=== PATIENT | male | born 1965 | race African-American/Black ===

== ENCOUNTER 2023-11-28 16:28 | Inpatient (IN) | payer OTHER, SELFPAY ==
[2023-11-28] VITALS (11 sets, daily range): BP systolic 92–104; BP diastolic 51–70; PULSE 91–110; RESP 16–31; TEMP 36.6–36.8; O2SAT 93–100; BMI 24.7
--- NOTE | ~2023-11-28 | XR_ITS ---
EXAMINATION: XR chest 1V portable DATE: 11/28/2023 18:06 INDICATION: Chest pain. TECHNIQUE: A single frontal view of the chest was obtained on 2 radiographs. COMPARISON: None. FINDINGS: There is mild elevation of right hemidiaphragm. There are airspace opacities in all right l jaleel zones with a perihilar predominance. No pleural effusion or pneumothorax. The heart size is myrna l. There are old healed bilateral rib fractures. IMPRESSION: 1. Airspace opacities in right lung, consistent with atelectasis/scarring versus pneumonia. Reviewed, dictated and finalized at location A. IMPRESSION: 1. Airspace opacities in right lung, consistent with atelectasis/scarring versu s pneumonia.
--- NOTE | ~2023-11-28 | CT_ITS ---
EXAMINATION: CT abdomen pelvis w con DATE: 12/02/2023 14:44 INDICATION: Abdominal pain TECHNIQUE: Computed tomography (CT) of the abdomen and pelvis was performed with 100 CC Omnipaque 350 intravenous contrast. Automated exposure control and iterative reconstruction technique were employe d. Exam dose: 337.64 mGy-cm total exam DLP. COMPARISON: None. FINDINGS: There is extensive right lower lobe infiltrate with air bronchograms. Small right pleural e ffusion. The remaining included lower lung ohara are clear. No left pleural effusion. Normal heart size. Coronary artery calcification. No pericardial effusion. Small sliding hiatal hernia. Thickening of the wall of distal esophagus which may be secondary to eso phagitis. The liver, spleen, pancreas are unremarkable. Status post cholecystectomy. No bile duct or pancreatic duct dilatation. Normal morphology of the adrenal glands. 12.7 mm left renal cyst Multiple right renal cysts are noted, the largest 1.4 cm. No urinary tract calculus or hydroureteronephrosis. There is prominent diffuse thickening of the urinary bladder moderate prostate enlargement. Normal caliber and slight calcification of the abdominal aorta. No intraperitoneal or retroperitoneal or pelvic mass lesion or adenopathy or ascites is noted. Normal appendix. No bowel obstruction or intraperitoneal free air. Old healed left rib fractures. Prominent degenerative spurring of the thoracic and lumbar spine, including very prominent bridging o steophytes in the lumbar and lumbosacral area. No suspicious osteolytic or osteoblastic lesions are noted. IMPRESSION: Right lower lobe pneumonia and slight right pleural effusion Small sliding hiatal hernia, distal esophageal wall thickening suggesting esophagitis Status post cholecystectomy Bilateral renal cysts Prominent thickening urinary bladder wall, likely due to prostatomegaly; recommend clinical correlati on to exclude cystitis. Normal appendix Reviewed, dictated and finalized at Location [facility]. Reviewed, dictated and finalized at location A. IMPRESSION: Right lower lobe pneumonia and slight right pleural effusion Small sliding hiatal hernia, distal esophageal wall thickening suggesting esoph agitis Status post cholecystectomy Bilateral renal cysts Prominent thickening urinary bladder wall, likely due to prostatomegaly; recomm end clinical correlation to exclude cystitis. Normal appendix
--- NOTE | ~2023-11-28 | CT_ITS ---
EXAMINATION: CTA chest PE protocol DATE: 11/28/2023 19:13 INDICATION: Hypoxia. TECHNIQUE: Computed tomography angiography (CTA) of the chest was performed with 100 mL Omnipaque-350 intravenous contrast timed to evaluate the pulmonary arteries. Coronal maximum intensity projection 3D-reconstructions were created by the technologist. Automated exposure control and iterative reconst ruction technique were employed. The dose-length product was 284.38 mGy-cm. COMPARISON: Chest single view 11/28/2023 FINDINGS: There are airspace and groundglass opacities with air bronchograms in right lower lobe, con sistent with pneumonia. No pleural effusion. The heart size is normal. There are coronary artery calc ifications. No pericardial effusion. There is no pulmonary embolus. There are changes of cholecystect belinda. There is wall thickening of the esophagus. There is mild thoracic spondylosis. There are old hea led bilateral rib fractures. IMPRESSION: 1. No pulmonary embolus. 2. Right lower lobe pneumonia. 3. Wall thickening of the esophagus, consistent with esophagitis. Reviewed, dictated and finalized at location A.
--- NOTE | ~2023-11-28 | XR_ITS ---
EXAMINATION: XR abdomen/kub 1V DATE: 12/02/2023 10:26 INDICATION: Abdominal pain. TECHNIQUE: A supine view of the abdomen was obtained. COMPARISON: None. FINDINGS: There are no dilated loops of bowel. There is a small volume of stool in the colon. IMPRESSION: 1. Normal bowel gas pattern. Reviewed, dictated and finalized at location A.
--- NOTE | 2023-11-28 16:34 | ECG_ITS ---
Test Date: 2023-11-28 16:40:51 Measurements Intervals [place] Rate: 111 P: 53 MI: 132 QRS: 31 QRSD: 92 T: 63 QT: 308 QTc: 420 Interpretive Statements SINUS TACHYCARDIA NONSPECIFIC T-WAVE ABNORMALITY- DIFFUSE LEADS BASELINE ARTIFACT- I, III, AVR, AVL ABNORMAL ECG No previous ECG available for comparison Electronically Signed On 11-28-2023 19:24:33 CDT by Jesus Kenyon D.O.
[2023-11-28 16:52] LABS: Hematocrit 39.1 % (42.0-52.0); Hemoglobin 13.8 g/dL (14.0-18.0); Mean Corpuscular HGB Conc 35.3 g/dl (32-36); Mean Corpuscular Hemoglobin 32.6 pg (26-34); Mean Corpuscular Volume 92.4 fl (80-100); Mean Platelet Volume 9.4 fl (7.4-10.4); Platelet Count Result 147 k/mm3 (150-375); Red Blood Count 4.23 M/mm3 (4.6-6.20); Red Cell Distribution Width 12.3 % (11.5-14.5); White Blood Count 3.3 K/mm3 (4.5-10.0)
[2023-11-28 17:01] LABS: INR 1.5
[2023-11-28 17:02] LABS: Partial Thromboplastin Time 32.1 Seconds (22.3-36.8)
[2023-11-28 17:04] LABS: Band Neutrophils Percent 8 % (0-6); Lymphocytes Absolute Manual 0.26 K/mm3 (1.1-4.5); Lymphocytes Percent Manual 8 % (18-44); Metamyelocytes Percent 2 %; Monocytes Absolute Manual 0.13 K/mm3 (0.1-0.90); Monocytes Percent Manual 4 % (3-9); Neutrophils Absolute Manual 2.83 K/mm3 (1.3-6.7); Neutrophils Percent Manual 78 % (46-73); Platelet Estimate Adequate (Adequate); Total Cells Counted 100
[2023-11-28 17:05] LABS: Ovalocytes 1+; Schistocytes None Seen
[2023-11-28 17:12] LABS: Alanine Aminotransferase 35 U/L (6-50); Albumin Level 3.2 g/dL (3.5-5.1); Alkaline Phosphatase 59 U/L (38-126); Anion Gap 14 mmol/L (4-12); Aspartate Amino Transferase 80 U/L (17-59); Bilirubin,Total 1.7 mg/dL (0.2-1.3); Blood Urea Nitrogen 18 mg/dL (9-20); Calcium 7.6 mg/dL (8.4-10.2); Carbon Dioxide 23 mmol/L (22-30); Chloride 93 mmol/L (98-107); Estimated CRCL calculation 64 ml/min; Estimated Glomerular Filt Rate > 60; Glucose 85 mg/dL (65-110); Lipase 26 U/L (23-300); Potassium 3.6 mmol/L (3.4-5.0); Sodium 130 mmol/L (137-145)
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
[2023-11-28] MEDS: IPRATROPIUM 0.5 MG/ALBUTEROL SULFATE 2.5 MG AMPUL.NEB 3 ML INHALATION (17:20)
[2023-11-28 17:23] LABS: Troponin I < 0.012 ng/mL (0.000-0.034)
[2023-11-28] MEDS: ONDANSETRON INJ 4 MG/2 ML VIAL IV PUSH (17:40)
[2023-11-28 18:03] LABS: Influenza A QL RT-PCR Negative (Negative); Influenza B QL RT-PCR Negative (Negative); RSV RNA, RT-PCR Negative (Negative); SARS-CoV-2 RNA PCR Positive (Negative)
[2023-11-28 18:16] LABS: D Dimer 1.84 ug/mL (<0.48)
--- NOTE | 2023-11-28 19:26 | ECG_ITS ---
Test Date: 2023-11-28 19:40:31 Measurements Intervals [place] Rate: 97 P: 71 TN: 160 QRS: 36 QRSD: 92 T: 54 QT: 345 QTc: 439 Interpretive Statements SINUS RHYTHM CONSIDER HIGH LATERAL INFARCT, AGE INDETERMINATE ABNORMAL ECG Compared to ECG 11/28/2023 16:40:51 HEART RATE HAS DECREASED Electronically Signed On 11-29-2023 06:38:28 CDT by Jesus Kenyon D.O.
[2023-11-28 20:13] LABS: Troponin I < 0.012 ng/mL (0.000-0.034)
[2023-11-28] MEDS: dexAMETHasone SOD PHOS INJ 10 MG/ML 1 ML VIAL IV PUSH (20:48)
[2023-11-28] MEDS: SODIUM CHLORIDE 0.9% IV 2,500 ML 999 ML IV CONT (20:49)
[2023-11-28] MEDS: AZITHROMYCIN 500 MG/NS 250 ML 500 MG/250 ML BAG 250 MG IVPB (21:05)
[2023-11-28 21:47] LABS: Procalcitonin 6.1 ng/mL
--- NOTE | 2023-11-28 22:11 | ADMGEN ---
This patient, Shakir Damon, was admitted to Medical Room 241-01. Patient/family oriented to hospital policies and general routines including ID bracelet, bed and alarms, visiting hours, pain management, procedures, bathroom and other care routines, personal items, smoking policy, room service/diet, and visiting hours. Information on how to activate the Rapid Response Team has been discussed. Patient/Family are encouraged to report perceived risks to care and to ask questions if they do not understand what they are told or what they should do.
[2023-11-28 23:47] LABS: Troponin I < 0.012 ng/mL (0.000-0.034)
[2023-11-29] VITALS (12 sets, daily range): BP systolic 103–128; BP diastolic 55–75; PULSE 86–94; RESP 18–24; TEMP 36.4–36.9; O2SAT 94–98
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
[2023-11-29 07:21] LABS: Hematocrit 34.2 % (42.0-52.0); Hemoglobin 12.1 g/dL (14.0-18.0); Immature Platelet Fraction Pct 3.2 % (0.9-11.2); Mean Corpuscular HGB Conc 35.4 g/dl (32-36); Mean Corpuscular Hemoglobin 32.6 pg (26-34); Mean Corpuscular Volume 92.2 fl (80-100); Mean Platelet Volume 9.2 fl (7.4-10.4); Platelet Count Result 149 k/mm3 (150-375); Red Blood Count 3.71 M/mm3 (4.6-6.20); Red Cell Distribution Width 12.4 % (11.5-14.5); White Blood Count 7.8 K/mm3 (4.5-10.0)
[2023-11-29 07:29] LABS: Alanine Aminotransferase 38 U/L (6-50); Albumin Level 2.7 g/dL (3.5-5.1); Alkaline Phosphatase 49 U/L (38-126); Anion Gap 9 mmol/L (4-12); Aspartate Amino Transferase 97 U/L (17-59); Bilirubin,Total 1.1 mg/dL (0.2-1.3); Blood Urea Nitrogen 19 mg/dL (9-20); Carbon Dioxide 23 mmol/L (22-30); Chloride 102 mmol/L (98-107); Estimated CRCL calculation 63 ml/min; Estimated Glomerular Filt Rate > 60; Glucose 102 mg/dL (65-110); Potassium 3.1 mmol/L (3.4-5.0); Sodium 134 mmol/L (137-145)
[2023-11-29 07:50] LABS: Band Neutrophils Percent 45 % (0-6); Lymphocytes Absolute Manual 0.39 K/mm3 (1.1-4.5); Metamyelocytes Percent 3 %; Monocytes Absolute Manual 0.23 K/mm3 (0.1-0.90); Monocytes Percent Manual 3 % (3-9); Neutrophils Absolute Manual 6.94 K/mm3 (1.3-6.7); Neutrophils Percent Manual 44 % (46-73); Platelet Estimate Adequate (Adequate); Schistocytes None Seen; Total Cells Counted 100
[2023-11-29 07:51] LABS: Hypochromasia 1+
[2023-11-29 08:53] LABS: CRP 22.9 mg/dL (<1.0)
[2023-11-29 09:11] LABS: Folic Acid 6.8 ng/mL (2.76->20)
[2023-11-29] MEDS: dexAMETHasone 2 MG TABLET 6 MG PO (09:25)
[2023-11-29] MEDS: REMDESIVIR 200 MG/NS 250 ML 200 MG/250 ML BAG 250 MG IVPB (09:26)
[2023-11-29] MEDS: ENOXAPARIN 40 MG/0.4 ML SYRINGE SUB-Q (09:26)
[2023-11-29] MEDS: FOLIC ACID 1 MG TABLET PO (09:27)
[2023-11-29] MEDS: THIAMINE HCL 100 MG TABLET PO (09:27)
[2023-11-29] MEDS: PANTOPRAZOLE 40 MG TABLET PO (09:27)
--- NOTE | 2023-11-29 11:45 | P.PNIM_ITS ---
Progress Note: A&P Assessment and Plan (1) Sepsis: Qualifiers: Acute respiratory failure type: with hypoxia Sepsis acute organ dysfunction status: with acute organ dysfunction Sepsis type: sepsis due to unspecified organism Severe sepsis acute organ dysfunction type: acute respiratory failure Severe sepsis shock status: without septic shock Qualified Code(s): A41.9 - Sepsis, unspecified organism; R65.20 - Severe sepsis without septic shock; J96.01 - Acute respiratory failure with hypoxia Code(s): A41.9 - Sepsis, unspecified organism Status: Acute Assessment and Plan: 11/29/23: * initially meeting sepsis criteria with a pulse rate of 108, respiratory rate of 31, low blood pressure readings, known source of infection- bacterial pneumonia complicated by COVID 19 infection * patient was given 2500 mL of normal saline while in the ED * blood cultures were obtained and are pending * currently on Rocephin and azithromycin * white blood cell count 7.8, band neutrophils 45, absolute neutrophils 6.94 (2) Hypoxic respiratory failure: Qualifiers: Chronicity: unspecified Qualified Code(s): J96.91 - Respiratory failure, unspecified with hypoxia Code(s): J96.91 - Respiratory failure, unspecified with hypoxia Status: Acute Assessment and Plan: 11/29/23: * secondary due to bacterial pneumonia and COVID-19 infection * currently on 2 L nasal cannula * wean O2 for sat greater than 92% (3) Pneumonia: Qualifiers: Laterality: right Lung location: lower lobe of lung Pneumonia type: due to unspecified organism Qualified Code(s): J18.9 - Pneumonia, unspecified organism Code(s): J18.9 - Pneumonia, unspecified organism Status: Acute Assessment and Plan: 11/29/23: * likely community-acquired pneumonia * chest x-ray showing airspace opacities in the right lung consistent with pneumonia * chest CTA was negative for PE, showed right lower lobe pneumonia * blood cultures were obtained and are pending * continue Rocephin and azithromycin * continue Albuterol inhaler * will check urine strep, urine Legionella, mycoplasma, MRSA * sputum culture ordered (4) COVID: Code(s): U07.1 - COVID-19 Status: Acute Assessment and Plan: 11/29/23: * COVID positive * chest x-ray showing pneumonia, combination of bacterial and viral pneumonia * continue remdesivir and dexamethasone (5) Alcohol abuse: Code(s): F10.10 - Alcohol abuse, uncomplicated Status: Acute Assessment and Plan: 11/29/23: * admits to drinking 3-4 beers per day on average * continue CIWA protocol (6) Esophagitis: Code(s): K20.90 - Esophagitis, unspecified without bleeding Status: Acute Assessment and Plan: 11/29/23: * continue Protonix daily (7) Pancytopenia: Code(s): D61.818 - Other pancytopenia Status: Acute Assessment and Plan: 11/29/23: * initial white blood cell count 3.3, RBC 4.23, platelet count 147 * likely secondary to bacterial pneumonia and COVID-19 infection * repeat labs today showing normal white blood cell count of 7.8, RBC 3.71, platelet count 149 * continue to trend * if no improvement in labs consider hematology/oncology consultation Time Spent With Patient Time with patient: Greater than 35 minutes Subjective Date/time seen: 11/29/23 11:45 Interval history: interval history: This is a 58-year-old homeless male who presented to the hospital today with complaints of chest pain. Workup in the hospital incl
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
[2023-11-29] MEDS: POTASSIUM CHLORIDE 20 MEQ ER TABLET 40 MEQ PO (12:25)
[2023-11-29 12:31] LABS: Amphetamine Screen Urine Negative (Negative); Barbiturate Screen Urine Negative (Negative); Benzodiazepines Screen Urine Negative (Negative); Cannabinoid Screen Urine Negative (Negative); Cocaine Screen Urine Positive (Negative); Methadone Screen Urine Negative (Negative); Opiate Screen Urine Negative (Negative); Phencyclidine Screen Urine Negative (Negative)
[2023-11-29] MEDS: cefTRIAXone 2 GM/NS 100 ML 2 GM/100 ML BAG IVPB (15:59)
[2023-11-29 18:33] LABS: MRSA (PCR) NOT DETECTED (NOT DETECTE)
[2023-11-29] MEDS: AZITHROMYCIN 250 MG TABLET 500 MG PO (20:10)
[2023-11-29] MEDS: CALCIUM CARBONATE (TUMS) 500 MG (200 MG ELEMENTAL) PO (21:07)
[2023-11-30] VITALS (9 sets, daily range): BP systolic 108–118; BP diastolic 67–76; PULSE 70–89; RESP 18–22; TEMP 36.5–36.7; O2SAT 98–99
--- NOTE | 2023-11-30 06:22 | PCRCNOTE ---
Sputum induction done without given 7% NACL. Pt coughed up mod amt thick yellow white secretions in specimen cup.
[2023-11-30] MEDS: PANTOPRAZOLE 40 MG TABLET PO (08:33)
[2023-11-30] MEDS: dexAMETHasone 2 MG TABLET 6 MG PO (08:33)
[2023-11-30] MEDS: THIAMINE HCL 100 MG TABLET PO (08:33)
[2023-11-30] MEDS: cefTRIAXone 2 GM/NS 100 ML 2 GM/100 ML BAG IVPB (08:33)
[2023-11-30] MEDS: FOLIC ACID 1 MG TABLET PO (08:33)
[2023-11-30] MEDS: ENOXAPARIN 40 MG/0.4 ML SYRINGE SUB-Q (08:33)
--- NOTE | 2023-11-30 09:52 | P.PNIM_ITS ---
Progress Note: A&P Assessment and Plan (1) Sepsis: Qualifiers: Acute respiratory failure type: with hypoxia Sepsis acute organ dysfunction status: with acute organ dysfunction Sepsis type: sepsis due to unspecified organism Severe sepsis acute organ dysfunction type: acute respiratory failure Severe sepsis shock status: without septic shock Qualified Code(s): A41.9 - Sepsis, unspecified organism; R65.20 - Severe sepsis without septic shock; J96.01 - Acute respiratory failure with hypoxia Code(s): A41.9 - Sepsis, unspecified organism Status: Acute Assessment and Plan: 11/29/23: * initially meeting sepsis criteria with a pulse rate of 108, respiratory rate of 31, low blood pressure readings, known source of infection- bacterial pneumonia complicated by COVID 19 infection * patient was given 2500 mL of normal saline while in the ED * blood cultures were obtained and are pending * currently on Rocephin and azithromycin * white blood cell count 7.8, band neutrophils 45, absolute neutrophils 6.94 11/30/23: * Blood cultures showing gram positive cocci in chains on preliminary read * New blood cultures obtained and are currently showing no growth * Rocephin increased to 2 gm daily yesterday and will continue with azithromycin for today * Will transition to oral Levaquin starting tomorrow. (2) Hypoxic respiratory failure: Qualifiers: Chronicity: unspecified Qualified Code(s): J96.91 - Respiratory failure, unspecified with hypoxia Code(s): J96.91 - Respiratory failure, unspecified with hypoxia Status: Acute Assessment and Plan: 11/29/23: * secondary due to bacterial pneumonia and COVID-19 infection * currently on 2 L nasal cannula * wean O2 for sat greater than 92% 11/30/23: * continue to wean O2 for saturation greater than 92% (3) Pneumonia: Qualifiers: Laterality: right Lung location: lower lobe of lung Pneumonia type: due to unspecified organism Qualified Code(s): J18.9 - Pneumonia, unspecified organism Code(s): J18.9 - Pneumonia, unspecified organism Status: Acute Assessment and Plan: 11/29/23: * likely community-acquired pneumonia * chest x-ray showing airspace opacities in the right lung consistent with pneumonia * chest CTA was negative for PE, showed right lower lobe pneumonia * blood cultures were obtained and are pending * continue Rocephin and azithromycin * continue Albuterol inhaler * will check urine strep, urine Legionella, mycoplasma, MRSA * sputum culture ordered 11/30/23: * MRSA negative * Awaiting results of urine strep, urine legionella, mycoplasma * Continue with Rocephin 2gm dosing and Azithromycin (4) COVID: Code(s): U07.1 - COVID-19 Status: Acute Assessment and Plan: 11/29/23: * COVID positive * chest x-ray showing pneumonia, combination of bacterial and viral pneumonia * continue remdesivir and dexamethasone 11/30/23: * Discontinue Remdesivir and Dexamethasone as he has more bacterial versus viral presentation. He is also off oxygen (5) Alcohol abuse: Code(s): F10.10 - Alcohol abuse, uncomplicated Status: Acute Assessment and Plan: 11/29/23: * admits to drinking 3-4 beers per day on average * continue CIWA protocol 11/30/23: * No change to current treatment plan (6) Esophagitis: Code(s): K20.90 - Esophagitis, unspecified without bleeding Status: Acute Assessment and Plan: 11/29/23: * continue Protonix daily 11/30/23: * No change to current t
--- NOTE | 2023-11-30 09:52 | PM.IMPN ---
Progress Note: A&P Assessment and Plan (1) Sepsis: Qualifiers: Acute respiratory failure type: with hypoxia Sepsis acute organ dysfunction status: with acute organ dysfunction Sepsis type: sepsis due to unspecified organism Severe sepsis acute organ dysfunction type: acute respiratory failure Severe sepsis shock status: without septic shock Qualified Code(s): A41.9 - Sepsis, unspecified organism; R65.20 - Severe sepsis without septic shock; J96.01 - Acute respiratory failure with hypoxia Code(s): A41.9 - Sepsis, unspecified organism Status: Acute Assessment and Plan: 11/29/23: initially meeting sepsis criteria with a pulse rate of 108, respiratory rate of 31, low blood pressure readings, known source of infection- bacterial pneumonia complicated by COVID 19 infection patient was given 2500 mL of normal saline while in the ED blood cultures were obtained and are pending currently on Rocephin and azithromycin white blood cell count 7.8, band neutrophils 45, absolute neutrophils 6.94 11/30/23: Blood cultures showing gram positive cocci in chains on preliminary read New blood cultures obtained and are currently showing no growth Rocephin increased to 2 gm daily yesterday and will continue with azithromycin for today Will transition to oral Levaquin starting tomorrow. (2) Hypoxic respiratory failure: Qualifiers: Chronicity: unspecified Qualified Code(s): J96.91 - Respiratory failure, unspecified with hypoxia Code(s): J96.91 - Respiratory failure, unspecified with hypoxia Status: Acute Assessment and Plan: 11/29/23: secondary due to bacterial pneumonia and COVID-19 infection currently on 2 L nasal cannula wean O2 for sat greater than 92% 11/30/23: continue to wean O2 for saturation greater than 92% (3) Pneumonia: Qualifiers: Laterality: right Lung location: lower lobe of lung Pneumonia type: due to unspecified organism Qualified Code(s): J18.9 - Pneumonia, unspecified organism Code(s): J18.9 - Pneumonia, unspecified organism Status: Acute Assessment and Plan: 11/29/23: likely community-acquired pneumonia chest x-ray showing airspace opacities in the right lung consistent with pneumonia chest CTA was negative for PE, showed right lower lobe pneumonia blood cultures were obtained and are pending continue Rocephin and azithromycin continue Albuterol inhaler will check urine strep, urine Legionella, mycoplasma, MRSA sputum culture ordered 11/30/23: MRSA negative Awaiting results of urine strep, urine legionella, mycoplasma Continue with Rocephin 2gm dosing and Azithromycin (4) COVID: Code(s): U07.1 - COVID-19 Status: Acute Assessment and Plan: 11/29/23: COVID positive chest x-ray showing pneumonia, combination of bacterial and viral pneumonia continue remdesivir and dexamethasone 11/30/23: Discontinue Remdesivir and Dexamethasone as he has more bacterial versus viral presentation. He is also off oxygen (5) Alcohol abuse: Code(s): F10.10 - Alcohol abuse, uncomplicated Status: Acute Assessment and Plan: 11/29/23: admits to drinking 3-4 beers per day on average continue CIWA protocol 11/30/23: No change to current treatment plan (6) Esophagitis: Code(s): K20.90 - Esophagitis, unspecified without bleeding Status: Acute Assessment and Plan: 11/29/23: continue Protonix daily 11/30/23: No change to current treatment plan (7) Pancytopenia: Code(s): D61.818 - Other pancytopenia Status: Acute Assessment and Plan: 11/29/23: initial white blood cell count 3.3, RBC 4.23, platelet count 147 likely secondary to bacterial pneumonia and COVID-19 infection repeat labs today showing normal white blood cell count of 7.8, RBC 3.71, platelet count 149 continue to trend if no improvement in labs consider hematology/oncolog
[2023-11-30 10:04] LABS: Hematocrit 34.2 % (42.0-52.0); Hemoglobin 11.7 g/dL (14.0-18.0); Mean Corpuscular HGB Conc 34.2 g/dl (32-36); Mean Corpuscular Hemoglobin 32.1 pg (26-34); Mean Corpuscular Volume 93.7 fl (80-100); Mean Platelet Volume 10.6 fl (7.4-10.4); Platelet Count Result 167 k/mm3 (150-375); Red Blood Count 3.65 M/mm3 (4.6-6.20); Red Cell Distribution Width 12.3 % (11.5-14.5); White Blood Count 13.7 K/mm3 (4.5-10.0)
[2023-11-30] MEDS: REMDESIVIR 100 MG/NS 250 ML 100 MG/250 ML BAG 250 MG IVPB (10:04)
[2023-11-30 10:15] LABS: Alanine Aminotransferase 30 U/L (6-50); Albumin Level 2.8 g/dL (3.5-5.1); Alkaline Phosphatase 68 U/L (38-126); Anion Gap 7 mmol/L (4-12); Aspartate Amino Transferase 45 U/L (17-59); Bilirubin,Total 0.4 mg/dL (0.2-1.3); Blood Urea Nitrogen 24 mg/dL (9-20); Calcium 7.6 mg/dL (8.4-10.2); Carbon Dioxide 25 mmol/L (22-30); Chloride 104 mmol/L (98-107); Estimated CRCL calculation 69 ml/min; Estimated Glomerular Filt Rate > 60; Glucose 117 mg/dL (65-110); Potassium 3.5 mmol/L (3.4-5.0); Sodium 136 mmol/L (137-145)
[2023-11-30 10:25] LABS: Band Neutrophils Percent 17 % (0-6); Lymphocytes Absolute Manual 1.23 K/mm3 (1.1-4.5); Lymphocytes Percent Manual 9 % (18-44); Neutrophils Absolute Manual 10.54 K/mm3 (1.3-6.7); Neutrophils Percent Manual 60 % (46-73); Total Cells Counted 100
[2023-11-30 10:26] LABS: Metamyelocytes Percent 4 %; Monocytes Absolute Manual 1.37 K/mm3 (0.1-0.90); Monocytes Percent Manual 10 % (3-9); Platelet Estimate Adequate (Adequate); Schistocytes None Seen
[2023-12-01] VITALS (9 sets, daily range): BP systolic 128–130; BP diastolic 63–73; PULSE 59–70; RESP 16–20; TEMP 36.3–36.6; O2SAT 95–99
--- NOTE | 2023-12-01 | ECHO_ITS ---
Patient Info Name: Shakir Damon Age: 58 years : 1965 Gender: Male Ht: 68 in Wt: 163 lbs BSA: 1.89 m2 HR: 69 bpm BP: 130 / 64 mmHg Heart Rhythm: Sinus Rhythm Technical Quality: Good Exam Date: 12/01/2023 2:37 PM Exam Location: Echo Lab Patient Status: Inpatient Admit Date: 11/30/2023 Staff Ordering Physician: Rosalinda Rudolph APRN [employer] Machine Set Up Operator: Jc Johnson RDCS Attending Provider: Radhika Gibbs DO Referring Physician: Klaudia ALVAREZ; Exam Type: CA echo doppler color flow Study Info Indications - hx of cocaine use, strep pnuemonia infection Complete two-dimensional, color flow and Doppler transthoracic echocardiogram is performed. Summary 1. Complete two-dimensional, color flow and Doppler transthoracic echocardiogram is performed. 2. Left ventricular chamber dimension is normal. 3. Left ventricular systolic function is normal, estimated at 55-60%. 4. The left ventricular diastolic function is grade I diastolic dysfunction. 5. E/e' 6 is not elevated. 6. There is mild mitral valve regurgitation. 7. There is mild tricuspid valve regurgitation. 8. No pulmonary hypertension, estimated pulmonary arterial systolic pressure is 25 mmHg. 9. There is trace pulmonic regurgitation. Left Ventricle E/e' 6 is not elevated. Left ventricular chamber dimension is normal. Left ventricular systolic function is normal, estimated at 55-60%. The left ventricular diastolic function is grade I diastolic dysfunction. Right Ventricle Right ventricular chamber dimension is normal. Right ventricular systolic function is normal. Left Atria Left atrial chamber dimension is normal. Right Atria Right atrial chamber dimension is normal. Aortic Valve The aortic valve is trileaflet. There is no aortic valve stenosis. There is no aortic valve regurgitation. Pulmonic Valve There is trace pulmonic regurgitation. Mitral Valve There is no mitral valve stenosis. There is mild mitral valve regurgitation. Tricuspid Valve There is mild tricuspid valve regurgitation. No pulmonary hypertension, estimated pulmonary arterial systolic pressure is 25 mmHg. Pericardium/Pleural There is no pericardial effusion. Inferior Vena Cava Normal inferior vena cava with >50% collapse upon inspiration consistent with normal right atrial pressure, 5 mmHg. Aorta The aortic root size at the sinus of Valsalva is normal. Left Ventricular Outflow Tract Name Value Normal LVOT 2D LVOT Diameter 2.1 cm LVOT Doppler LVOT Peak Gradient 1 mmHg LVOT Mean Gradient 1 mmHg LVOT VTI 11 cm LVOT VTI/AV VTI Ratio 0.6 LVOT Stroke Volume 38 ml LVOT CO 3.3 l/min LVOT CI 1.7 l/min/m2 Pulmonic Valve Name Value Normal PV Doppler PV Peak Gradient 3 mmHg
[2023-12-01 06:43] LABS: Basophils Percent Auto 0.2 % (0.2-1.2); Hematocrit 33.9 % (42.0-52.0); Immature Granulocyte Absolute 0.21 K/mm3 (0.00-0.031); Immature Granulocyte Percent A 1.6 % (0-0.5); Lymphocytes Absolute Auto 0.98 K/mm3 (0.9-3.2); Lymphocytes Percent Auto 7.3 % (18.3-44.2); Mean Corpuscular HGB Conc 35.4 g/dl (32-36); Mean Corpuscular Hemoglobin 32.5 pg (26-34); Mean Corpuscular Volume 91.9 fl (80-100); Mean Platelet Volume 10.1 fl (7.4-10.4); Monocytes Absolute Auto 1.3 K/mm3 (0.1-0.6); Monocytes Percent Auto 9.9 % (2.6-8.5); Platelet Count Result 178 k/mm3 (150-375); Red Blood Count 3.69 M/mm3 (4.6-6.20); Red Cell Distribution Width 12.1 % (11.5-14.5); White Blood Count 13.5 K/mm3 (4.5-10.0)
[2023-12-01 06:56] LABS: Alanine Aminotransferase 27 U/L (6-50); Albumin Level 2.6 g/dL (3.5-5.1); Alkaline Phosphatase 72 U/L (38-126); Anion Gap 8 mmol/L (4-12); Aspartate Amino Transferase 34 U/L (17-59); Bilirubin,Total 0.2 mg/dL (0.2-1.3); Blood Urea Nitrogen 26 mg/dL (9-20); Calcium 7.7 mg/dL (8.4-10.2); Carbon Dioxide 24 mmol/L (22-30); Chloride 103 mmol/L (98-107); Estimated CRCL calculation 76 ml/min; Estimated Glomerular Filt Rate > 60; Glucose 115 mg/dL (65-110); Potassium 3.1 mmol/L (3.4-5.0); Sodium 135 mmol/L (137-145)
--- NOTE | 2023-12-01 06:58 | PCRCNOTE ---
Patient refused sodium chloride used to induce a sputum sample. Patient coughed a bit, produced spit in the specimen cup, and handed it to RT. Patient stated, I'm sick of this st
[2023-12-01] MEDS: PANTOPRAZOLE 40 MG TABLET PO (10:55)
[2023-12-01] MEDS: FOLIC ACID 1 MG TABLET PO (10:55)
[2023-12-01] MEDS: THIAMINE HCL 100 MG TABLET PO (10:55)
[2023-12-01] MEDS: levoFLOXacin 750 MG TABLET PO (10:55)
[2023-12-01] MEDS: ENOXAPARIN 40 MG/0.4 ML SYRINGE SUB-Q (10:56)
--- NOTE | 2023-12-01 12:18 | P.PNIM_ITS ---
Progress Note: A&P Assessment and Plan (1) Sepsis: Qualifiers: Acute respiratory failure type: with hypoxia Sepsis acute organ dysfunction status: with acute organ dysfunction Sepsis type: sepsis due to unspecified organism Severe sepsis acute organ dysfunction type: acute respiratory failure Severe sepsis shock status: without septic shock Qualified Code(s): A41.9 - Sepsis, unspecified organism; R65.20 - Severe sepsis without septic shock; J96.01 - Acute respiratory failure with hypoxia Code(s): A41.9 - Sepsis, unspecified organism Status: Acute Assessment and Plan: 11/29/23: * initially meeting sepsis criteria with a pulse rate of 108, respiratory rate of 31, low blood pressure readings, known source of infection- bacterial pneumonia complicated by COVID 19 infection * patient was given 2500 mL of normal saline while in the ED * blood cultures were obtained and are pending * currently on Rocephin and azithromycin * white blood cell count 7.8, band neutrophils 45, absolute neutrophils 6.94 11/30/23: * Blood cultures showing gram positive cocci in chains on preliminary read * New blood cultures obtained and are currently showing no growth * Rocephin increased to 2 gm daily yesterday and will continue with azithromycin for today * Will transition to oral Levaquin starting tomorrow. 12/01/23: * New set of blood cultures still showing no growth to date on preliminary read * Now on Levaquin * WBC 13.5 today * Plan for echo today (2) Hypoxic respiratory failure: Qualifiers: Chronicity: unspecified Qualified Code(s): J96.91 - Respiratory failure, unspecified with hypoxia Code(s): J96.91 - Respiratory failure, unspecified with hypoxia Status: Acute Assessment and Plan: 11/29/23: * secondary due to bacterial pneumonia and COVID-19 infection * currently on 2 L nasal cannula * wean O2 for sat greater than 92% 11/30/23: * continue to wean O2 for saturation greater than 92% 12/01/23: * Currently on room air (3) Pneumonia: Qualifiers: Laterality: right Lung location: lower lobe of lung Pneumonia type: due to unspecified organism Qualified Code(s): J18.9 - Pneumonia, unspecified organism Code(s): J18.9 - Pneumonia, unspecified organism Status: Acute Assessment and Plan: 11/29/23: * likely community-acquired pneumonia * chest x-ray showing airspace opacities in the right lung consistent with pneumonia * chest CTA was negative for PE, showed right lower lobe pneumonia * blood cultures were obtained and are pending * continue Rocephin and azithromycin * continue Albuterol inhaler * will check urine strep, urine Legionella, mycoplasma, MRSA * sputum culture ordered 11/30/23: * MRSA negative * Awaiting results of urine strep, urine legionella, mycoplasma * Continue with Rocephin 2gm dosing and Azithromycin 12/01/23: * Continue Levaquin * blood cultures showing strep. pneumoniae (4) COVID: Code(s): U07.1 - COVID-19 Status: Acute Assessment and Plan: 11/29/23: * COVID positive * chest x-ray showing pneumonia, combination of bacterial and viral pneumonia * continue remdesivir and dexamethasone 11/30/23: * Discontinue Remdesivir and Dexamethasone as he has more bacterial versus viral presentation. He is also off oxygen 12/01/23: * No change to current treatment plan (5) Alcohol abuse: Code(s): F10.10 - Alcohol abuse, uncomplicated Status: Acute Assessment and Plan: 11/29/23: * admits
--- NOTE | 2023-12-01 12:18 | PM.IMPN ---
Progress Note: A&P Assessment and Plan (1) Sepsis: Qualifiers: Acute respiratory failure type: with hypoxia Sepsis acute organ dysfunction status: with acute organ dysfunction Sepsis type: sepsis due to unspecified organism Severe sepsis acute organ dysfunction type: acute respiratory failure Severe sepsis shock status: without septic shock Qualified Code(s): A41.9 - Sepsis, unspecified organism; R65.20 - Severe sepsis without septic shock; J96.01 - Acute respiratory failure with hypoxia Code(s): A41.9 - Sepsis, unspecified organism Status: Acute Assessment and Plan: 11/29/23: initially meeting sepsis criteria with a pulse rate of 108, respiratory rate of 31, low blood pressure readings, known source of infection- bacterial pneumonia complicated by COVID 19 infection patient was given 2500 mL of normal saline while in the ED blood cultures were obtained and are pending currently on Rocephin and azithromycin white blood cell count 7.8, band neutrophils 45, absolute neutrophils 6.94 11/30/23: Blood cultures showing gram positive cocci in chains on preliminary read New blood cultures obtained and are currently showing no growth Rocephin increased to 2 gm daily yesterday and will continue with azithromycin for today Will transition to oral Levaquin starting tomorrow. 12/01/23: New set of blood cultures still showing no growth to date on preliminary read Now on Levaquin WBC 13.5 today Plan for echo today (2) Hypoxic respiratory failure: Qualifiers: Chronicity: unspecified Qualified Code(s): J96.91 - Respiratory failure, unspecified with hypoxia Code(s): J96.91 - Respiratory failure, unspecified with hypoxia Status: Acute Assessment and Plan: 11/29/23: secondary due to bacterial pneumonia and COVID-19 infection currently on 2 L nasal cannula wean O2 for sat greater than 92% 11/30/23: continue to wean O2 for saturation greater than 92% 12/01/23: Currently on room air (3) Pneumonia: Qualifiers: Laterality: right Lung location: lower lobe of lung Pneumonia type: due to unspecified organism Qualified Code(s): J18.9 - Pneumonia, unspecified organism Code(s): J18.9 - Pneumonia, unspecified organism Status: Acute Assessment and Plan: 11/29/23: likely community-acquired pneumonia chest x-ray showing airspace opacities in the right lung consistent with pneumonia chest CTA was negative for PE, showed right lower lobe pneumonia blood cultures were obtained and are pending continue Rocephin and azithromycin continue Albuterol inhaler will check urine strep, urine Legionella, mycoplasma, MRSA sputum culture ordered 11/30/23: MRSA negative Awaiting results of urine strep, urine legionella, mycoplasma Continue with Rocephin 2gm dosing and Azithromycin 12/01/23: Continue Levaquin blood cultures showing strep. pneumoniae (4) COVID: Code(s): U07.1 - COVID-19 Status: Acute Assessment and Plan: 11/29/23: COVID positive chest x-ray showing pneumonia, combination of bacterial and viral pneumonia continue remdesivir and dexamethasone 11/30/23: Discontinue Remdesivir and Dexamethasone as he has more bacterial versus viral presentation. He is also off oxygen 12/01/23: No change to current treatment plan (5) Alcohol abuse: Code(s): F10.10 - Alcohol abuse, uncomplicated Status: Acute Assessment and Plan: 11/29/23: admits to drinking 3-4 beers per day on average continue CIWA protocol 11/30/23: No change to current treatment plan (6) Esophagitis: Code(s): K20.90 - Esophagitis, unspecified without bleeding Status: Acute Assessment and Plan: 11/29/23: continue Protonix daily 11/30/23: No change to current treatment plan (7) Pancytopenia: Code(s): D61.818 - Other pancytopenia Status: Acute Assessment and Plan: 11/29/23:
[2023-12-01] MEDS: POTASSIUM CHLORIDE 20 MEQ ER TABLET 40 MEQ PO (18:52)
[2023-12-01 22:39] LABS: Pneumococcal Antigen Urine DETECTED
[2023-12-02] VITALS (9 sets, daily range): BP systolic 104–111; BP diastolic 52–73; PULSE 67–93; RESP 16–26; TEMP 36.4–37.1; O2SAT 94–99
--- NOTE | 2023-12-02 07:22 | P.PNIM_ITS ---
Progress Note: A&P Assessment and Plan (1) Sepsis: Qualifiers: Acute respiratory failure type: with hypoxia Sepsis acute organ dysfunction status: with acute organ dysfunction Sepsis type: sepsis due to unspecified organism Severe sepsis acute organ dysfunction type: acute respiratory failure Severe sepsis shock status: without septic shock Qualified Code(s): A41.9 - Sepsis, unspecified organism; R65.20 - Severe sepsis without septic shock; J96.01 - Acute respiratory failure with hypoxia Code(s): A41.9 - Sepsis, unspecified organism Status: Acute Assessment and Plan: 11/29/23: * initially meeting sepsis criteria with a pulse rate of 108, respiratory rate of 31, low blood pressure readings, known source of infection- bacterial pneumonia complicated by COVID 19 infection * patient was given 2500 mL of normal saline while in the ED * blood cultures were obtained and are pending * currently on Rocephin and azithromycin * white blood cell count 7.8, band neutrophils 45, absolute neutrophils 6.94 11/30/23: * Blood cultures showing streptococcus pneumoniae * New blood cultures obtained and are currently showing no growth * Rocephin increased to 2 gm daily yesterday and will continue with azithromycin for today * Will transition to oral Levaquin starting tomorrow. 12/01/23: * New set of blood cultures still showing no growth to date on preliminary read * Now on Levaquin * WBC 13.5 today * Plan for echo today 12/02/23: * New set of blood cultures still showing no growth to date on preliminary read * Remains on levaquin * WBC 9.4 * Echo: LVEF 55-60%, grade I diastolic dysfunction. No signs of endocarditis. (2) Hypoxic respiratory failure: Qualifiers: Chronicity: unspecified Qualified Code(s): J96.91 - Respiratory failure, unspecified with hypoxia Code(s): J96.91 - Respiratory failure, unspecified with hypoxia Status: Acute Assessment and Plan: 11/29/23: * secondary due to bacterial pneumonia and COVID-19 infection * currently on 2 L nasal cannula * wean O2 for sat greater than 92% 11/30/23: * continue to wean O2 for saturation greater than 92% 12/01/23: * Currently on room air 12/02/23: * Remains on room air (3) Pneumonia: Qualifiers: Laterality: right Lung location: lower lobe of lung Pneumonia type: due to unspecified organism Qualified Code(s): J18.9 - Pneumonia, unspecified organism Code(s): J18.9 - Pneumonia, unspecified organism Status: Acute Assessment and Plan: 11/29/23: * likely community-acquired pneumonia * chest x-ray showing airspace opacities in the right lung consistent with pneumonia * chest CTA was negative for PE, showed right lower lobe pneumonia * blood cultures were obtained and are pending * continue Rocephin and azithromycin * continue Albuterol inhaler * will check urine strep, urine Legionella, mycoplasma, MRSA * sputum culture ordered 11/30/23: * MRSA negative * Awaiting results of urine strep, urine legionella, mycoplasma * Continue with Rocephin 2gm dosing and Azithromycin 12/01/23: * Continue Levaquin * blood cultures showing strep. pneumoniae 12/02/23: * Remains on Levaquin * repeat blood cultures showing NGTD (4) COVID: Code(s): U07.1 - COVID-19 Status: Acute Assessment and Plan: 11/29/23: * COVID positive * chest x-ray showing pneumonia, combination of bacterial and viral pneumonia * continue remdesivir and dexamethasone 11/30/23: * Disco
--- NOTE | 2023-12-02 07:22 | PM.IMPN ---
Progress Note: A&P Assessment and Plan (1) Sepsis: Qualifiers: Acute respiratory failure type: with hypoxia Sepsis acute organ dysfunction status: with acute organ dysfunction Sepsis type: sepsis due to unspecified organism Severe sepsis acute organ dysfunction type: acute respiratory failure Severe sepsis shock status: without septic shock Qualified Code(s): A41.9 - Sepsis, unspecified organism; R65.20 - Severe sepsis without septic shock; J96.01 - Acute respiratory failure with hypoxia Code(s): A41.9 - Sepsis, unspecified organism Status: Acute Assessment and Plan: 11/29/23: initially meeting sepsis criteria with a pulse rate of 108, respiratory rate of 31, low blood pressure readings, known source of infection- bacterial pneumonia complicated by COVID 19 infection patient was given 2500 mL of normal saline while in the ED blood cultures were obtained and are pending currently on Rocephin and azithromycin white blood cell count 7.8, band neutrophils 45, absolute neutrophils 6.94 11/30/23: Blood cultures showing streptococcus pneumoniae New blood cultures obtained and are currently showing no growth Rocephin increased to 2 gm daily yesterday and will continue with azithromycin for today Will transition to oral Levaquin starting tomorrow. 12/01/23: New set of blood cultures still showing no growth to date on preliminary read Now on Levaquin WBC 13.5 today Plan for echo today 12/02/23: New set of blood cultures still showing no growth to date on preliminary read Remains on levaquin WBC 9.4 Echo: LVEF 55-60%, grade I diastolic dysfunction. No signs of endocarditis. (2) Hypoxic respiratory failure: Qualifiers: Chronicity: unspecified Qualified Code(s): J96.91 - Respiratory failure, unspecified with hypoxia Code(s): J96.91 - Respiratory failure, unspecified with hypoxia Status: Acute Assessment and Plan: 11/29/23: secondary due to bacterial pneumonia and COVID-19 infection currently on 2 L nasal cannula wean O2 for sat greater than 92% 11/30/23: continue to wean O2 for saturation greater than 92% 12/01/23: Currently on room air 12/02/23: Remains on room air (3) Pneumonia: Qualifiers: Laterality: right Lung location: lower lobe of lung Pneumonia type: due to unspecified organism Qualified Code(s): J18.9 - Pneumonia, unspecified organism Code(s): J18.9 - Pneumonia, unspecified organism Status: Acute Assessment and Plan: 11/29/23: likely community-acquired pneumonia chest x-ray showing airspace opacities in the right lung consistent with pneumonia chest CTA was negative for PE, showed right lower lobe pneumonia blood cultures were obtained and are pending continue Rocephin and azithromycin continue Albuterol inhaler will check urine strep, urine Legionella, mycoplasma, MRSA sputum culture ordered 11/30/23: MRSA negative Awaiting results of urine strep, urine legionella, mycoplasma Continue with Rocephin 2gm dosing and Azithromycin 12/01/23: Continue Levaquin blood cultures showing strep. pneumoniae 12/02/23: Remains on Levaquin repeat blood cultures showing NGTD (4) COVID: Code(s): U07.1 - COVID-19 Status: Acute Assessment and Plan: 11/29/23: COVID positive chest x-ray showing pneumonia, combination of bacterial and viral pneumonia continue remdesivir and dexamethasone 11/30/23: Discontinue Remdesivir and Dexamethasone as he has more bacterial versus viral presentation. He is also off oxygen 12/01/23: No change to current treatment plan (5) Alcohol abuse: Code(s): F10.10 - Alcohol abuse, uncomplicated Status: Acute Assessment and Plan: admits to drinking 3-4 beers per day on average continue CIWA protocol (6) Esophagitis: Code(s): K20.90 - Esophagitis, unspecified without bleeding Status: Acute Asse
[2023-12-02] MEDS: levoFLOXacin 750 MG TABLET PO (09:23)
[2023-12-02] MEDS: THIAMINE HCL 100 MG TABLET PO (09:23)
[2023-12-02] MEDS: PANTOPRAZOLE 40 MG TABLET PO (09:23)
[2023-12-02] MEDS: FOLIC ACID 1 MG TABLET PO (09:23)
[2023-12-02] MEDS: ENOXAPARIN 40 MG/0.4 ML SYRINGE SUB-Q (09:23)
[2023-12-02] MEDS: CALCIUM CARBONATE (TUMS) 500 MG (200 MG ELEMENTAL) PO (09:36)
[2023-12-02 10:43] LABS: Basophils Absolute Auto 0.1 K/mm3 (0.0-0.1); Basophils Percent Auto 0.6 % (0.2-1.2); Eosinophils Percent Auto 0.1 % (0-4.4); Hematocrit 40.6 % (42.0-52.0); Hemoglobin 13.9 g/dL (14.0-18.0); Immature Granulocyte Absolute 0.34 K/mm3 (0.00-0.031); Immature Granulocyte Percent A 3.6 % (0-0.5); Lymphocytes Absolute Auto 1.39 K/mm3 (0.9-3.2); Lymphocytes Percent Auto 14.8 % (18.3-44.2); Mean Corpuscular HGB Conc 34.2 g/dl (32-36); Mean Corpuscular Hemoglobin 31.5 pg (26-34); Mean Corpuscular Volume 92.1 fl (80-100); Mean Platelet Volume 9.7 fl (7.4-10.4); Monocytes Absolute Auto 1.2 K/mm3 (0.1-0.6); Neutrophils Absolute Auto 6.4 K/mm3 (1.3-6.7); Neutrophils Percent Auto 67.9 % (45.5-73.1); Platelet Count Result 220 k/mm3 (150-375); Red Blood Count 4.41 M/mm3 (4.6-6.20); Red Cell Distribution Width 12.3 % (11.5-14.5); White Blood Count 9.4 K/mm3 (4.5-10.0)
[2023-12-02 10:53] LABS: Alanine Aminotransferase 34 U/L (6-50); Alkaline Phosphatase 73 U/L (38-126); Anion Gap 9 mmol/L (4-12); Aspartate Amino Transferase 42 U/L (17-59); Bilirubin,Total 0.3 mg/dL (0.2-1.3); Blood Urea Nitrogen 23 mg/dL (9-20); Calcium 7.9 mg/dL (8.4-10.2); Carbon Dioxide 28 mmol/L (22-30); Chloride 100 mmol/L (98-107); Estimated CRCL calculation 69 ml/min; Estimated Glomerular Filt Rate > 60; Glucose 109 mg/dL (65-110); Sodium 137 mmol/L (137-145)
[2023-12-02] MEDS: ACETAMINOPHEN 325 MG TABLET 650 MG PO (13:17)
[2023-12-02] MEDS: POTASSIUM CHLORIDE 20 MEQ ER TABLET 40 MEQ PO (13:27)
[2023-12-03] VITALS (7 sets, daily range): BP systolic 85–102; BP diastolic 58–71; PULSE 83–101; RESP 16–28; TEMP 36.3–36.6; O2SAT 94–95
[2023-12-03 04:58] LABS: Basophils Absolute Auto 0.1 K/mm3 (0.0-0.1); Basophils Percent Auto 0.8 % (0.2-1.2); Eosinophils Percent Auto 0.4 % (0-4.4); Hematocrit 37.9 % (42.0-52.0); Hemoglobin 13.4 g/dL (14.0-18.0); Immature Granulocyte Percent A 6.6 % (0-0.5); Lymphocytes Absolute Auto 1.87 K/mm3 (0.9-3.2); Lymphocytes Percent Auto 17.7 % (18.3-44.2); Mean Corpuscular HGB Conc 35.4 g/dl (32-36); Mean Corpuscular Hemoglobin 32.1 pg (26-34); Mean Corpuscular Volume 90.7 fl (80-100); Mean Platelet Volume 9.6 fl (7.4-10.4); Monocytes Absolute Auto 1.4 K/mm3 (0.1-0.6); Monocytes Percent Auto 12.8 % (2.6-8.5); Neutrophils Absolute Auto 6.5 K/mm3 (1.3-6.7); Neutrophils Percent Auto 61.7 % (45.5-73.1); Platelet Count Result 238 k/mm3 (150-375); Red Blood Count 4.18 M/mm3 (4.6-6.20); Red Cell Distribution Width 12.3 % (11.5-14.5); White Blood Count 10.6 K/mm3 (4.5-10.0)
[2023-12-03 05:16] LABS: Alanine Aminotransferase 32 U/L (6-50); Albumin Level 2.9 g/dL (3.5-5.1); Alkaline Phosphatase 83 U/L (38-126); Anion Gap 8 mmol/L (4-12); Aspartate Amino Transferase 35 U/L (17-59); Bilirubin,Total 0.3 mg/dL (0.2-1.3); Blood Urea Nitrogen 21 mg/dL (9-20); Calcium 7.6 mg/dL (8.4-10.2); Carbon Dioxide 25 mmol/L (22-30); Chloride 102 mmol/L (98-107); Estimated CRCL calculation 76 ml/min; Estimated Glomerular Filt Rate > 60; Glucose 84 mg/dL (65-110); Potassium 2.9 mmol/L (3.4-5.0); Sodium 135 mmol/L (137-145)
[2023-12-03] MEDS: ACETAMINOPHEN 325 MG TABLET 650 MG PO (06:46)
--- NOTE | 2023-12-03 08:38 | PM.DS ---
DS: Admitting Diagnosis Discharge Date 12/03/23 Admitting Diagnosis sepsis acute hypoxic respiratory failure community acquired pneumonia COVID alcohol abuse Esophagitis Pancytopenia Unsheltered homeless DS: Discharge Diagnosis Discharge Diagnosis (1) Sepsis: Qualifiers: Acute respiratory failure type: with hypoxia Sepsis acute organ dysfunction status: with acute organ dysfunction Sepsis type: sepsis due to unspecified organism Severe sepsis acute organ dysfunction type: acute respiratory failure Severe sepsis shock status: without septic shock Qualified Code(s): A41.9 - Sepsis, unspecified organism; R65.20 - Severe sepsis without septic shock; J96.01 - Acute respiratory failure with hypoxia Code(s): A41.9 - Sepsis, unspecified organism Status: Acute (2) Hypoxic respiratory failure: Qualifiers: Chronicity: unspecified Qualified Code(s): J96.91 - Respiratory failure, unspecified with hypoxia Code(s): J96.91 - Respiratory failure, unspecified with hypoxia Status: Acute (3) Pneumonia: Qualifiers: Laterality: right Lung location: lower lobe of lung Pneumonia type: due to unspecified organism Qualified Code(s): J18.9 - Pneumonia, unspecified organism Code(s): J18.9 - Pneumonia, unspecified organism Status: Acute (4) COVID: Code(s): U07.1 - COVID-19 Status: Acute (5) Alcohol abuse: Code(s): F10.10 - Alcohol abuse, uncomplicated Status: Acute (6) Esophagitis: Code(s): K20.90 - Esophagitis, unspecified without bleeding Status: Acute (7) Pancytopenia: Code(s): D61.818 - Other pancytopenia Status: Acute (8) Weakness: Code(s): R53.1 - Weakness Status: Acute DS: Summary Hospital Course Reason for hospitalization: sepsis acute hypoxic respiratory failure community acquired pneumonia COVID alcohol abuse Esophagitis Pancytopenia Unsheltered homeless Hospital Course: This is a 58-year-old homeless male who presented to the hospital today with complaints of chest pain. Workup in the hospital included chest x-ray which showed airspace opacities in the right lung consistent with atelectasis / scarring versus pneumonia. Chest CTA was negative for PE, showed right lower lobe pneumonia, wall thickening of the esophagus consistent with esophagitis. Initial labs showed a white blood cell count of 3.3, RBC 4.23, hemoglobin 13.8, platelet count 147, band neutrophils 8, D-dimer 1.84, sodium 130, chloride 93, total bili 1.7, AST 80, troponin negative x2, procalcitonin 6.1. Respiratory panel was negative for influenza a and B, RSV. He was positive for COVID. Blood cultures were obtained and are pending. EKG showed sinus tachycardia with a rate of 111, QTC 420. Patient was given 324 mg aspirin, Zofran, DuoNeb, Rocephin, azithromycin, dexamethasone, remdesivir, and 2500 mL of normal saline while in the ED. Remdesivir and dexamethasone were stopped after patient O2 needs were down. He was continued on Rocephin and Azithromycin and then transitioned to oral Levoquin monotherapy. Today his VSS, he is afebrile, currently on room air. He is stable for discharge at this time. He will need to follow up with his primary care doctor in 1 week. Final diagnosis: sepsis, acute respiratory failure with hypoxia, community acquired pneumonia, COVD-19 Status at Discharge Cognitive/behavioral status at discharge: Alert and oriented x3 Functional status at discharge: independent ambulation Overall status at discharge: patient is progressing back to baseline Time Spent with Patient Time attestation: Total time spent providing and/or coordinating discharge services: Time spent: Greater than 30 minutes Exam Narrative: General: chronically ill appearing, weak Cardiac: Normal S1 and S2. No murmur, gallops or friction rubs, peripheral pulses intact. Respiratory: Lungs clear, no adventitious lung sounds, pr
[2023-12-03] MEDS: FOLIC ACID 1 MG TABLET PO (10:29)
[2023-12-03] MEDS: PANTOPRAZOLE 40 MG TABLET PO (10:29)
[2023-12-03] MEDS: ENOXAPARIN 40 MG/0.4 ML SYRINGE SUB-Q (10:29)
[2023-12-03] MEDS: THIAMINE HCL 100 MG TABLET PO (10:29)
[2023-12-03] MEDS: levoFLOXacin 750 MG TABLET PO (10:29)
[2023-12-03] MEDS: POTASSIUM CHLORIDE 20 MEQ ER TABLET 40 MEQ PO (10:37)
--- NOTE | 2023-12-03 16:15 | PCCCNOTE ---
1615-provider a cab voucher for transportation upon discharge to his pharmacy and address requested in [facility].-alireza.
[2023-12-05 01:34] LABS: Legionella pneumophila Ag Ur NOT DETECTED
== END 2023-12-03 16:20 | disposition home or self-care (01) | DRG 720 ==
LOC: ANHED 18:56 → ANH2MED 21:23
PROVIDERS: Emergency Medicine; Student in an Organized Health Care Education/Training Program; Admitting Provider Internal Medicine; Emergency Provider Emergency Medicine; Visit Provider Nurse Practitioner Acute Care
DX: A40.3 Sepsis due to Streptococcus pneumoniae (principal); U07.1 COVID-19; J96.01 Acute respiratory failure with hypoxia; J18.9 Pneumonia, unspecified organism; J44.0 Chronic obstructive pulmonary disease with (acute) lower respiratory infection; R65.20 Severe sepsis without septic shock; D61.818 Other pancytopenia; K20.90 Esophagitis, unspecified without bleeding; F81.9 Developmental disorder of scholastic skills, unspecified; F20.9 Schizophrenia, unspecified; F10.10 Alcohol abuse, uncomplicated; Z59.00 Homelessness unspecified
CPT/HCPCS: 36415; 71045; 71275; 74018; 74177; 80053; 80307; 82607; 82728; 82746; 83690; 84145; 84484; 85025; 85055; 85380; 85610; 85730; 86140; 87040; 87070; 87077; 87181; 87205; 87449; 87637; 87641; 87899; 93005; 93306; 94640; 96365; 96367; 96372; 96374; 96375; 97161; 99285; A9270; G0378; G0379; J0248; J0456; J0696; J1100; J1650; J2405; J7030; J8540; Q9967